=== PATIENT | female | born 1990 | race Two or more races ===

== ENCOUNTER 2024-04-23 13:39 | Outpatient (CLI) | payer OTHER | END 2024-04-23 15:49 | disposition home or self-care (01) | LOC: PRENATAL 13:39 | PROVIDERS: ATTEND Obstetrics & Gynecology Maternal & Fetal Medicine | DX: O36.80X0 Pregnancy with inconclusive fetal viability, not applicable or unspecified (principal); Z36.82 Encounter for antenatal screening for nuchal translucency; Z14.8 Genetic carrier of other disease; Z3A.13 13 weeks gestation of pregnancy ==

== ENCOUNTER → 2024-06-04 | Outpatient (CLI) | payer OTHER | END | disposition home or self-care (01) | LOC: PRENATAL 12:45 | PROVIDERS: ATTEND Obstetrics & Gynecology Maternal & Fetal Medicine | DX: O44.00 Complete placenta previa NOS or without hemorrhage, unspecified trimester (principal); Z3A.20 20 weeks gestation of pregnancy ==

== ENCOUNTER 2024-07-22 20:00 | Outpatient (CLI) | payer OTHER ==
[~2024-07-22] VITALS: Ht 157.5 cm; Wt 101.6 kg
[2024-07-22 19:31] VITALS: BP 101/61
[2024-07-22] MEDS ORDERED: RINGERS SOLUTION,LACTATED 1,000 ML IV SCH (20:15)
[2024-07-22] MEDS ORDERED: PRENATAL TABLE1 EAC1 PO (20:30)
[2024-07-22] MEDS ORDERED: ADULT LOW DOSE81 M1 PO (20:30)
[2024-07-22 21:07] LABS: URINE APPEARANCE Clear; URINE BILIRRUBIN Negative (NEGATIVE); URINE BLOOD Negative; URINE COLOR Yellow; URINE GLUCOSE Negative (NEGATIVE); URINE KETONE Negative (NEGATIVE); URINE LEUKOCYTE Trace; URINE NITRATE Negative; URINE PROTEIN 30 (NEGATIVE)
[2024-07-22 21:08] LABS: HEMATOCRIT 31.4 % (36.0-45.00); HEMOGLOBIN 10.6 g/dL (12.0-15.00); MEAN CELL VOLUME 83.3 fL (80.00-100.00); MEAN CORPUSCULAR HEMOGLOBIN 28.1 pg (27.00-32.0); MEAN CORPUSCULAR HGB CONC 33.8 g/dl (32.0-36.0); PLATELET COUNT 215 K/uL (150-450); RED BLOOD COUNT 3.77 M/uL (4.00-6.00); RED CELL DISTRIBUTION WIDTH 14.9 % (11.5-14.5)
[2024-07-22 21:11] LABS: URINE BACTERIA 2873.8 uL (0.0-1933); URINE CAST 1.47 uL (0.0-1.40); URINE RBC 5.7 uL (0.0-20.8); URINE WBC 50.9 uL (0.0-23.2)
[2024-07-22 23:40] VITALS: BP 98/63
[2024-07-23 03:46] VITALS: BP 104/77
[2024-07-23 06:14] VITALS: BP 102/64; O2SAT 97
[2024-07-23 09:17] VITALS: BP 110/60
== END 2024-07-23 09:24 | disposition home or self-care (01) ==
LOC: OBS/DEL 20:00
PROVIDERS: ATTEND Obstetrics & Gynecology
DX: O36.8120 Decreased fetal movements, second trimester, not applicable or unspecified (principal); O26.849 Uterine size-date discrepancy, unspecified trimester; Z3A.26 26 weeks gestation of pregnancy

== ENCOUNTER → 2024-08-28 08:20 | Outpatient (CLI) | payer OTHER ==
[~2024-08-28 08:20] MED LIST: ADULT LOW DOSE81 M1 PO; PRENATAL TABLE1 EAC1 PO
== END | disposition home or self-care (01) ==
LOC: PRENATAL 08:20
PROVIDERS: ATTEND Obstetrics & Gynecology Maternal & Fetal Medicine
DX: O26.849 Uterine size-date discrepancy, unspecified trimester (principal); O36.8199 Decreased fetal movements, unspecified trimester, other fetus; O99.019 Anemia complicating pregnancy, unspecified trimester; Z3A.33 33 weeks gestation of pregnancy

== ENCOUNTER 2024-09-28 13:28 | Inpatient (IN) | payer OTHER ==
[~2024-09-28] VITALS: Ht 157.5 cm; Wt 108.0 kg
[2024-09-28 12:40] VITALS: BP 101/70
[2024-09-28 14:15] LABS: BASO % 0.2 % (0.1-1.2); EOS # 0.04 (0.04-0.54); EOS % 0.7 % (0.7-7.0); LYMPH # 1.13 (1.18-3.74); LYMPH % 18.9 % (19.3-53.1); MEAN PLATELET VOLUME 12.10 fl (9.4-12.4); MONO # 0.50 (0.24-0.82); MONO % 8.4 % (4.7-12.5); NEUT # 4.28 (1.56-6.13); NEUT % 71.5 % (34.0-71.1); RED CELL DISTRIBUTION WIDTH 15.2 % (11.6-14.4)
[2024-09-28] MEDS ORDERED: RINGERS SOLUTION,LACTATED 1,000 ML IV SCH (14:15)
[2024-09-28 14:27] LABS: URINE APPEARANCE Clear; URINE BILIRRUBIN Negative (NEGATIVE); URINE BLOOD Negative; URINE COLOR Yellow; URINE GLUCOSE Negative (NEGATIVE); URINE KETONE Negative (NEGATIVE); URINE LEUKOCYTE Negative; URINE NITRATE Negative; URINE PROTEIN Negative (NEGATIVE); URINE UROBILINOGEN 0.2 E.U./dl
[2024-09-28 14:28] LABS: URINE BACTERIA 25.1 uL (0.0-1933); URINE EPITHELIAL CELLS 11.3 uL (0.0-38.8); URINE WBC 21.5 uL (0.0-23.2)
[2024-09-28 14:38] LABS: URINE CAST 0.87 uL (0.0-1.40); URINE RBC 1.0 uL (0.0-20.8)
[2024-09-28 16:35] VITALS: BP 107/67
[2024-09-28] MEDS ORDERED: SOD FERRIC GLUC COMPLX/SUCROSE 62.5 MG/5 ML AMPUL IV SCH (17:30)
[2024-09-28] MEDS ORDERED: TERBUTALINE SULFATE 1 MG/ML AMPUL SUBCUTANEO ONE (17:45)
[2024-09-28 20:30] VITALS: BP 98/62
[2024-09-28 23:08] VITALS: BP 110/68
[2024-09-29] VITALS (7 sets, daily range): BP systolic 98–113; BP diastolic 63–74; O2SAT 97
[2024-09-29] MEDS ORDERED: MORPHINE SULFATE 4 MG/ML CARTRIDGE IV ONE (09:15)
[2024-09-29] MEDS ORDERED: TAMSULOSIN HCL 0.4 MG CAP PO STA (16:32)
[2024-09-30] VITALS: BP 119/80
[2024-09-30 04:00] VITALS: BP 110/70
[2024-09-30 06:26] VITALS: BP 99/65; O2SAT 97
[2024-09-30] MEDS ORDERED: RINGERS SOLUTION,LACTATED 1,000 ML IV SCH (09:45)
[2024-09-30 11:31] LABS: ALT/SGPT 10.0 U/L (12-78); AST/SGOT 8.0 U/L (15-37); BILIRUBIN TOTAL 0.16 mg/dL (0.3-1.2); BUN CREA RATIO 18.0 (7.0-25.0); CHOL HDL RATIO 2.5 (0-5.0); CREATININE SERUM 0.44 mg/dL (0.55-1.02); GFR 165.71; GLOBULINA 3.4 G/DL (2.4-3.5); GLUCOSE FASTING 74.0 mg/dL (65-100); HDL 89.0 mg/dl (40-60); LDL 101.0 mg/dl (0-130); OSMOLALITY SERUM 276.0 MOSM/KG (275-295); VLDL 35.0 (0-39)
[2024-09-30 12:03] VITALS: BP 103/69
[2024-09-30 13:49] VITALS: BP 126/78
[2024-09-30 16:00] VITALS: BP 104/67
[2024-10-01] VITALS: BP 122/79
[2024-10-01 01:35] VITALS: BP 112/73
[2024-10-01 03:28] VITALS: BP 91/59
[2024-10-01 06:34] VITALS: BP 123/87; O2SAT 97
[2024-10-01 08:45] VITALS: BP 123/69
== END 2024-10-01 10:01 | disposition home or self-care (01) | DRG 833 ==
LOC: OBS/DEL 13:28 → LDR 09-29 17:06 → OB/GYN 09-30 10:13 → LDR 10-01 10:00
PROVIDERS: ADMIT Obstetrics & Gynecology; ATTEND Obstetrics & Gynecology
PROC: BY4FZZZ Ultrasonography of Third Trimester, Single Fetus (ICD-10-PCS; principal; 2024-09-28)
PROC: BU4CZZZ Ultrasonography of Uterus and Ovaries (ICD-10-PCS; 2024-09-28)
PROC: 4A1HXCZ Monitoring of Products of Conception, Cardiac Rate, External Approach (ICD-10-PCS; 2024-09-29)
PROC: BW40ZZZ Ultrasonography of Abdomen (ICD-10-PCS; 2024-09-29)
PROC: BT43ZZZ Ultrasonography of Bilateral Kidneys (ICD-10-PCS; 2024-09-29)
DX: O26.893 Other specified pregnancy related conditions, third trimester (principal); R10.11 Right upper quadrant pain; O36.8130 Decreased fetal movements, third trimester, not applicable or unspecified; O60.03 Preterm labor without delivery, third trimester; O26.843 Uterine size-date discrepancy, third trimester; O40.1XX0 Polyhydramnios, first trimester, not applicable or unspecified; Z3A.36 36 weeks gestation of pregnancy; O99.013 Anemia complicating pregnancy, third trimester; D64.9 Anemia, unspecified

== ENCOUNTER 2024-10-08 11:18 | Inpatient (IN) | payer OTHER ==
[~2024-10-08] VITALS: Ht 157.5 cm; Wt 112.0 kg
[2024-10-08 09:40] VITALS: BP 116/73
[2024-10-08] MEDS ORDERED: RINGERS SOLUTION,LACTATED 1,000 ML IV SCH (12:15)
[2024-10-08 12:22] LABS: BASO % 0.2 % (0.1-1.2); EOS # 0.04 (0.04-0.54); EOS % 0.7 % (0.7-7.0); LYMPH # 1.11 (1.18-3.74); LYMPH % 20.4 % (19.3-53.1); MEAN PLATELET VOLUME 11.70 fl (9.4-12.4); MONO # 0.39 (0.24-0.82); MONO % 7.2 % (4.7-12.5); NEUT # 3.87 (1.56-6.13); NEUT % 71.3 % (34.0-71.1); RED CELL DISTRIBUTION WIDTH 16.7 % (11.6-14.4)
[2024-10-08 12:29] LABS: URINE APPEARANCE Cloudy; URINE BILIRRUBIN Negative (NEGATIVE); URINE BLOOD Negative; URINE COLOR Yellow; URINE GLUCOSE Negative (NEGATIVE); URINE KETONE Trace (NEGATIVE); URINE LEUKOCYTE Small; URINE NITRATE Negative; URINE PROTEIN Trace (NEGATIVE); URINE UROBILINOGEN 1.0 E.U./dl
[2024-10-08 12:34] LABS: URINE BACTERIA 7653.5 uL (0.0-1933); URINE EPITHELIAL CELLS 88.4 uL (0.0-38.8); URINE RBC 3.0 uL (0.0-20.8); URINE WBC 187.0 uL (0.0-23.2)
[2024-10-08 12:40] LABS: URINE CAST 1.02 uL (0.0-1.40)
[2024-10-08 15:22] VITALS: BP 121/72
[2024-10-08 17:50] VITALS: BP 116/73; BP 121/72
[2024-10-08] MEDS ORDERED: AMPICILLIN SODIUM 2,000 MG VIAL IV ONE (18:15)
[2024-10-08] MEDS ORDERED: fentaNYL CITRATE 50 MCG/ML AMPUL IV ONE (19:30)
[2024-10-08 19:53] VITALS: BP 112/77
[2024-10-08] MEDS ORDERED: AMPICILLIN SODIUM 1,000 MG VIAL IV SCH (21:00)
[2024-10-08 23:18] VITALS: BP 119/70
[2024-10-09] VITALS (9 sets, daily range): BP systolic 99–141; BP diastolic 60–85; O2SAT 98
[2024-10-09] MEDS ORDERED: OXYTOCIN 500 ML IV ONE (10:15)
[2024-10-09] MEDS ORDERED: OXYTOCIN 1,000 ML IV SCH (13:00)
[2024-10-09] MEDS ORDERED: OXYTOCIN 10 UNITS/ML VIAL IM STA (13:00)
[2024-10-09] MEDS ORDERED: CHLORHEXIDINE GLUCONATE 120 ML BOTTLE TOP SCH (13:00)
[2024-10-09] MEDS ORDERED: ERYTHROMYCIN BASE OPHT 1GM EACH TUBE OP ONE (13:00)
[2024-10-09 16:59] LABS: BASO % 0.0 % (0.1-1.2); EOS # 0.01 (0.04-0.54); EOS % 0.1 % (0.7-7.0); LYMPH # 0.65 (1.18-3.74); LYMPH % 7.0 % (19.3-53.1); MEAN PLATELET VOLUME 11.60 fl (9.4-12.4); MONO # 0.35 (0.24-0.82); MONO % 3.7 % (4.7-12.5); NEUT # 8.31 (1.56-6.13); NEUT % 88.9 % (34.0-71.1); RED CELL DISTRIBUTION WIDTH 16.7 % (11.6-14.4)
[2024-10-10 00:54] VITALS: BP 103/69
[2024-10-10 02:00] VITALS: BP 109/67
[2024-10-10 08:28] VITALS: BP 115/77
[2024-10-10 16:00] VITALS: BP 126/88
[2024-10-11 01:00] VITALS: BP 122/83
[2024-10-11 08:42] VITALS: BP 110/71
== END 2024-10-11 15:20 | disposition home or self-care (01) | DRG 807 ==
LOC: OBS/DEL 11:18 → LDR 17:48 → OBS/DEL 17:48 → OB/GYN 10-09 12:35
PROVIDERS: Obstetrics & Gynecology; ADMIT Obstetrics & Gynecology; ATTEND Obstetrics & Gynecology
PROC: 4A1HXCZ Monitoring of Products of Conception, Cardiac Rate, External Approach (ICD-10-PCS; 2024-10-08)
PROC: 10E0XZZ Delivery of Products of Conception, External Approach (ICD-10-PCS; principal; 2024-10-09)
PROC: 0W8NXZZ Division of Female Perineum, External Approach (ICD-10-PCS; 2024-10-09)
DX: O80 Encounter for full-term uncomplicated delivery (principal); Z37.0 Single live birth; Z3A.38 38 weeks gestation of pregnancy